=== PATIENT | female | born 1945 ===

== ENCOUNTER 2021-12-22 09:57 | Inpatient (IN) | payer OTHER ==
[~2021-12-22] VITALS: Ht 154.9 cm; Wt 101.6 kg
[2021-12-22] MEDS ORDERED: HYDROCHLOROTHIA25 MG PO (10:51)
[2021-12-22] MEDS ORDERED: ELIQUIS5 MG PO (10:51)
[2021-12-22] MEDS ORDERED: ADALAT CC30 MG PO (10:52)
[2021-12-22] MEDS ORDERED: LEVO-T50 MCG PO (10:52)
[2021-12-22] MEDS ORDERED: CRESTOR10 MG PO (10:52)
[2021-12-22] MEDS ORDERED: KLOR-CON M2020 MEQ PO (10:52)
[2021-12-24] MEDS ORDERED: FLUMAZENIL0.1 MG/1 M (08:01)
[2021-12-24] MEDS ORDERED: LEVOTHYROXINE75 MCG (08:01)
[2021-12-24] MEDS ORDERED: REFRESH OPTIVE10 ML (08:02)
[2021-12-24] MEDS ORDERED: KETOROLAC TROMET5 ML (08:02)
[2021-12-24] MEDS ORDERED: OFLOXACIN5 ML (08:02)
[2021-12-24] MEDS ORDERED: PRED FORTE5 ML (08:02)
[2021-12-24] MEDS ORDERED: CANDESARTAN CIL32 MG (08:02)
== END 2021-12-26 15:21 | disposition home or self-care (01) | DRG 741 ==
LOC: O/R 12-24 05:35 → OB/GYN 12-24 05:35 → SURG 12-24 07:00 → OB/GYN 12-24 11:10
PROVIDERS: ADMIT Specialist; ATTEND Specialist
PROC: 0UT7FZZ Resection of Bilateral Fallopian Tubes, Via Natural or Artificial Opening With Percutaneous Endoscopic Assistance (ICD-10-PCS; 2021-12-24)
PROC: 0UT2FZZ Resection of Bilateral Ovaries, Via Natural or Artificial Opening With Percutaneous Endoscopic Assistance (ICD-10-PCS; 2021-12-24)
PROC: 07BC4ZZ Excision of Pelvis Lymphatic, Percutaneous Endoscopic Approach (ICD-10-PCS; 2021-12-24)
PROC: 3E1M48Z Irrigation of Peritoneal Cavity using Irrigating Substance, Percutaneous Endoscopic Approach (ICD-10-PCS; 2021-12-24)
PROC: 0UT9FZZ Resection of Uterus, Via Natural or Artificial Opening With Percutaneous Endoscopic Assistance (ICD-10-PCS; principal; 2021-12-24 07:00)
DX: C54.1 Malignant neoplasm of endometrium (principal); N84.0 Polyp of corpus uteri; D25.2 Subserosal leiomyoma of uterus; N72 Inflammatory disease of cervix uteri; Z20.822 Contact with and (suspected) exposure to COVID-19